=== PATIENT | female | born 1985 | race Caucasian/White ===

== ENCOUNTER → 2018-07-30 09:34 | Outpatient (CLI) | payer MEDICAID ==
[2014-02-28 07:55] VITALS: BMI 30.7
[~2018-07-30 09:34] MED LIST: HYDROCODONE-APA1 TAB PO; IBUPROFEN600 MG PO; PRENATAL COMPLE1 TAB
[2018-07-30 11:35] LABS: COLOR YELLOW (YELLOW)
[2018-07-30 11:36] LABS: APPEARANCE CLOUDY (CLEAR); BILIRUBIN NEGATIVE (NEGATIVE); GLUCOSE NEGATIVE (NEGATIVE); KETONE NEGATIVE (NEGATIVE); NITRITE POSITIVE (NEGATIVE); PROTEIN NEGATIVE (NEGATIVE); UROBILINOGEN NORMAL (NORMAL)
[2018-07-30 11:38] LABS: BACTERIA MANY /hpf (NONE SEEN); EPITHELIAL CELLS 0-5 /hpf (0-5); MUCUS <1+ /lpf (NONE SEEN); RED CELLS - URINE RARE /hpf (0-5); WHITE CELLS - URINE OCC /hpf (0-5)
== END | disposition home or self-care (01) ==
LOC: D.LDO 09:34
PROVIDERS: ATTEND Obstetrics & Gynecology
DX: O26.892 Other specified pregnancy related conditions, second trimester (principal); R10.2 Pelvic and perineal pain

== ENCOUNTER → 2018-09-17 12:02 | Outpatient (CLI) | payer SELFPAY ==
[2014-02-28 07:55] VITALS: BMI 30.7
[2018-09-17 14:08] LABS: APPEARANCE CLEAR (CLEAR); BILIRUBIN NEGATIVE (NEGATIVE); COLOR YELLOW (YELLOW); GLUCOSE NEGATIVE (NEGATIVE); KETONE NEGATIVE (NEGATIVE); NITRITE NEGATIVE (NEGATIVE); PROTEIN NEGATIVE (NEGATIVE)
== END | disposition home or self-care (01) ==
LOC: D.LDO 12:02
PROVIDERS: ATTEND Obstetrics & Gynecology
DX: O26.899 Other specified pregnancy related conditions, unspecified trimester (principal); Z3A.29 29 weeks gestation of pregnancy

== ENCOUNTER → 2018-10-09 08:47 | Outpatient (CLI) | payer SELFPAY ==
[2014-02-28 07:55] VITALS: BMI 30.7
[2018-10-09 09:49] LABS: BASOPHILS 0.2 % (0-2); EOSINOPHILS 1.4 % (0-7); HEMATOCRIT 30.9 % (36.0-48.0); HEMOGLOBIN 10.4 g/dL (12-16); LYMPHOCYTES 13.7 % (15-50); MCH 27.9 pg (26.0-34.0); MCHC 33.7 g/dL (31.0-37.0); MCV 82.8 fL (80.0-100.0); MONOCYTES 7.4 % (2-11); NEUTROPHILS 76.3 % (40-80); RBC 3.73 10x6/uL (4.00-5.40); RDW 13.3 % (11.5-14.5); WBC 11.5 10x3/uL (4.8-10.8)
[2018-10-09 10:04] LABS: ALBUMIN 2.4 g/dL (3.4-5.0); ALKALINE PHOSPHATASE 138 U/L (46-116); ALT (SGPT) 17 U/L (10-68); BILIRUBIN - DIRECT 0.03 mg/dL (0.00-0.30); BILIRUBIN - INDIRECT 0.16 mg/dL (0.00-1.00); BILIRUBIN - TOTAL 0.19 mg/dL (0.2-1.3); CALC OSMOLALITY 274 mosm/kg (275-300); CALCIUM 8.3 mg/dL (8.5-10.1); CARBON DIOXIDE 20.2 mmol/L (21.0-32.0); CHLORIDE - SERUM 105 mmol/L (98-107); CREATININE - SERUM 0.6 mg/dL (0.6-1.3); GLUCOSE 95 mg/dL (74-106); POTASSIUM - SERUM 3.3 mmol/L (3.5-5.1); PROTEIN - SERUM 6.4 g/dL (6.4-8.2); SODIUM 139 mmol/L (136-145); UREA NITROGEN 5 mg/dL (7-18); URIC ACID 3.4 mg/dL (2.6-7.2); eGFR NON AFRICAN AMERICAN > 90 mL/min (90-120)
[2018-10-09 10:05] LABS: PLATELET COUNT 210 10x3/uL (130-400)
[2018-10-09 10:12] LABS: APPEARANCE SL CLDY (CLEAR); BACTERIA MANY /hpf (NONE SEEN); BILIRUBIN NEGATIVE (NEGATIVE); COLOR YELLOW (YELLOW); GLUCOSE NEGATIVE (NEGATIVE); KETONE NEGATIVE (NEGATIVE); MUCUS <1+ /lpf (NONE SEEN); NITRITE NEGATIVE (NEGATIVE); PROTEIN NEGATIVE (NEGATIVE); SPECIFIC GRAVITY 1.015 (1.005-1.020); UROBILINOGEN NORMAL (NORMAL); WHITE CELLS - URINE 0-5 /hpf (0-5)
== END | disposition home or self-care (01) ==
LOC: D.LDO 08:47
PROVIDERS: ATTEND Obstetrics & Gynecology
DX: O16.3 Unspecified maternal hypertension, third trimester (principal); Z3A.33 33 weeks gestation of pregnancy

== ENCOUNTER → 2018-10-23 09:20 | Outpatient (CLI) | payer MEDICAID | END | disposition home or self-care (01) | LOC: D.LDO 09:20 | DX: O26.893 Other specified pregnancy related conditions, third trimester (principal); Z3A.34 34 weeks gestation of pregnancy ==

== ENCOUNTER 2018-10-29 18:36 | Outpatient (CLI) | payer MEDICAID ==
[2014-02-28 07:55] VITALS: BMI 30.7
[2018-10-29 19:41] LABS: APPEARANCE CLEAR (CLEAR); BILIRUBIN NEGATIVE (NEGATIVE); COLOR YELLOW (YELLOW); GLUCOSE NEGATIVE (NEGATIVE); KETONE NEGATIVE (NEGATIVE); NITRITE NEGATIVE (NEGATIVE); PROTEIN NEGATIVE (NEGATIVE); UROBILINOGEN NORMAL (NORMAL)
[2018-10-29 19:42] LABS: BACTERIA MODERATE /hpf (NONE SEEN); EPITHELIAL CELLS 0-5 /hpf (0-5); RED CELLS - URINE OCC /hpf (0-5); WHITE CELLS - URINE 0-5 /hpf (0-5)
[2018-10-29 19:49] LABS: UDS - AMPHET NEGATIVE QUAL (NEGATIVE); UDS - BARB NEGATIVE QUAL (NEGATIVE); UDS - BENZO NEGATIVE QUAL (NEGATIVE); UDS - COCAINE NEGATIVE QUAL (NEGATIVE); UDS - OPIATE NEGATIVE QUAL (NEGATIVE); UDS - PCP NEGATIVE QUAL (NEGATIVE); UDS - THC NEGATIVE QUAL (NEGATIVE)
== END 2018-10-29 19:47 | disposition home or self-care (01) ==
LOC: D.LDO 18:36
PROVIDERS: ATTEND Obstetrics & Gynecology
DX: O36.8130 Decreased fetal movements, third trimester, not applicable or unspecified (principal); Z3A.35 35 weeks gestation of pregnancy

== ENCOUNTER → 2018-10-30 19:41 | Outpatient (CLI) | payer MEDICAID ==
[2014-02-28 07:55] VITALS: BMI 30.7
== END | disposition home or self-care (01) ==
LOC: D.LDO 19:41
PROVIDERS: ATTEND Obstetrics & Gynecology
DX: O36.8130 Decreased fetal movements, third trimester, not applicable or unspecified (principal); Z3A.35 35 weeks gestation of pregnancy

== ENCOUNTER 2018-11-10 18:29 | Outpatient (CLI) | payer MEDICAID ==
[2014-02-28 07:55] VITALS: BMI 30.7
[2018-11-10 20:19] LABS: APPEARANCE HAZY (CLEAR); BILIRUBIN NEGATIVE (NEGATIVE); COLOR YELLOW (YELLOW); GLUCOSE NEGATIVE (NEGATIVE); KETONE NEGATIVE (NEGATIVE); NITRITE NEGATIVE (NEGATIVE); PROTEIN NEGATIVE (NEGATIVE); SPECIFIC GRAVITY 1.015 (1.005-1.020); UROBILINOGEN NORMAL (NORMAL)
[2018-11-10 20:21] LABS: RED CELLS - URINE NONE SEEN /hpf (0-5)
[2018-11-10 20:22] LABS: BACTERIA MODERATE /hpf (NONE SEEN)
== END 2018-11-10 22:14 | disposition home or self-care (01) ==
LOC: D.LDO 18:29
PROVIDERS: ATTEND Obstetrics & Gynecology
DX: O26.893 Other specified pregnancy related conditions, third trimester (principal); Z3A.37 37 weeks gestation of pregnancy

== ENCOUNTER 2018-11-14 16:09 | Inpatient (IN) | payer MEDICAID ==
[~2018-11-14] VITALS: Ht 172.7 cm; Wt 102.3 kg
[2018-11-14] VITALS (11 sets, daily range): BP systolic 104–132; BP diastolic 54–66; Ht 172.7 cm; Wt 102.3 kg
[2018-11-14] MEDS ORDERED: BUSPAR10 MG PO (16:48)
[2018-11-14] MEDS ORDERED: AMBIEN10 MG PO (16:49)
[2018-11-14 16:59] LABS: HEMATOCRIT 31.5 % (36.0-48.0); HEMOGLOBIN 10.8 g/dL (12-16); MCH 27.3 pg (26.0-34.0); MCHC 34.3 g/dL (31.0-37.0); MCV 79.7 fL (80.0-100.0); MEAN PLATELET VOLUME 11.2 fL (7.4-10.4); RBC 3.95 10x6/uL (4.00-5.40); RDW 13.8 % (11.5-14.5); WBC 14.2 10x3/uL (4.8-10.8)
[2018-11-14 17:01] LABS: APPEARANCE CLEAR (CLEAR); BILIRUBIN NEGATIVE (NEGATIVE); COLOR YELLOW (YELLOW); GLUCOSE NEGATIVE (NEGATIVE); KETONE NEGATIVE (NEGATIVE); NITRITE NEGATIVE (NEGATIVE); PROTEIN NEGATIVE (NEGATIVE); SPECIFIC GRAVITY 1.015 (1.005-1.020); UROBILINOGEN NORMAL (NORMAL)
[2018-11-14 17:10] LABS: UDS - AMPHET NEGATIVE QUAL (NEGATIVE); UDS - BARB NEGATIVE QUAL (NEGATIVE); UDS - BENZO NEGATIVE QUAL (NEGATIVE); UDS - COCAINE NEGATIVE QUAL (NEGATIVE); UDS - OPIATE NEGATIVE QUAL (NEGATIVE); UDS - PCP NEGATIVE QUAL (NEGATIVE); UDS - THC NEGATIVE QUAL (NEGATIVE)
--- NOTE | 2018-11-14 19:14 | NUR ---
REPORT TAKEN FROM BLAKE VILLA RN. PATIENT CARE ASSUMED AT THIS TIME.
--- NOTE | 2018-11-14 19:41 | NUR ---
RECEIVED FROM RECOVERY TO 1273. PT. AWAKE AND ORIENTED. C/O ABD. CRAMPING. FUNDUS FIRM U/2 AND LOCHIA RUBRA SCANT. LOWER ABD. DRESSING DRY AND INTACT. SCD SLEEVES NOTED ON PT. AND CONNECTED TO PUMPS AND FUNCTIONAL. IV OF LACTATED RINGERS INFUSING IN RT. WRIST . RECOVERY NURSE QUESTIONED WHY NS WITH PITOCIN WASN'T HANGING. NURSE STATED ANES. DID NOT HANG IT. MCCALLUM PATENT AND DRAINING. PT. UNABLE TO MOVE OR LEFT LOWER EXTREMITIES. SIDE RAILS UP X 2 AND CALL LIGHT WITHIN REACH.
--- NOTE | 2018-11-14 20:10 | NUR ---
ICE CAP TO ABD. PT. STATES ABD. CRAMPING INCREASED AND DESIRES PAIN MED. [place] DRINK SERVED.
--- NOTE | 2018-11-14 20:15 | NUR ---
TORADOL GIVEN IVP SLOWLY ORDERED FOR C/O ABD. CRAMPING. DILAUDID 2MG GIVEN SLOW IV PUSH FOR C/O ABD. CRAMPING. PRESENT IV OF LR DOWN AND IV OF 1000CC NS WITH 20U PITOCIN ADDED HUNG TO PRESENT TUBING AT 125CC/HR. FAMILY INFORMED THAT PT. IN ROOM TO VISIT.
--- NOTE | 2018-11-14 21:30 | NUR ---
PT AWAKE, FF, ML, U/2, JOSE CARE DONE WITH WET WARM WASH CLOTHS, PINK PAD, BLUE CHUX AND JOSE PAD CHANGED, MOD BLEEDING NOTED WITH 1 SMALL PEA SIZE CLOT ICE PACK TO ABD, SCD'S ON AND WORKING PROPERLY, ENC PT TO DRINK PLENTY OF FLUIDS, PT VERBALIZES UNDERSTANDING, SERVED FRESH H20 AND ICE CHIPS, PT DENIES FURTHER NEEDS, FAMILY BACK TO ROOM
--- NOTE | 2018-11-14 22:23 | NUR ---
PT HOLDING , MANASAY NURSE IN ROOM GOING OVER PAPERWORK, PT REFUSES NICOTINE PATCH AT THIS TIME, PREFERS TO WAIT TILL MORNING, STATES "I'M DOING OK RIGHT NOW", DENIES NEEDS, PT'S OTHER CHILD AT BEDSIDE
--- NOTE | 2018-11-14 23:03 | NUR ---
PT MOUNTING MACHINE OPERATOR LIGHT, PT REQUEST BP CUFF TO COME OFF, STATES "IT'S JUST HINDERING ME HOLDING HER", OBTAINED LAST VITAL SIGNS, PT RATES PAIN 2/10, DENIES NEED FOR PAIN MED OR ANY OTHER NEEDS, PT'S SON AT BEDSIDE
--- NOTE | 2018-11-15 00:12 | NUR ---
PT CELL TUBER HAND LIGHT, C/O INC PAIN, ADM DILAUDID SIVP PER MD ORDERS, SEE EMAR, JOSE PAD CHANGED, LITE BLEEDING NOTED WITH NO CLOTS, PT REPORTS THAT SHE IS READY TO GET A LITTLE REST, INFORMED PT THAT I WILL BE BACK SHORTLY TO ADM TORADOL, PT VERBALIZES UNDERSTANDING, FRESH H20 AND ICE CHIPS SERVED, DENIES FURTHER NEEDS, PT'S OTHER CHILD AT BEDSIDE
--- NOTE | 2018-11-15 00:42 | NUR ---
[age] BABY GIRL BORN TAKEN TO NURSERY BY Petra KRUSE
--- NOTE | 2018-11-15 01:03 | NUR ---
PT AROUSES TO OPENING OF DOOR, ADM TORADOL SIVP PER MD ORDERS, PT REPORTS "ITCHING", INFORMED PT THAT I WILL CHECK ABOUT GETTING HER SOME BENADRYL, PT VERBALIZES UNDERSTANDING, REQUESTED AND PROVIDED FAN
--- NOTE | 2018-11-15 01:13 | NUR ---
ADM BENADRYL PO PER MD ORDERS, PT REQUESTED AND PROVIDED BLANKET AND PILLOW FOR FEMALE FRIEND, FOB, OTHER CHILD AND FEMALE FRIEND IN ROOM
--- NOTE | 2018-11-15 02:34 | NUR ---
PT AWAKE, FOB HOLDING , PT REPORTS "PAIN AND ITCHING IS BETTER", DENIES NEEDS AT THIS TIME
--- NOTE | 2018-11-15 02:47 | NUR ---
NEW BAG OF NS WITH PITOCIN HUNG VIA PUMP INFUSING AT 125 ML/HR
[2018-11-15 04:30] VITALS: BP 106/52
--- NOTE | 2018-11-15 04:30 | NUR ---
PT STRAND FORMING MACHINE OPERATOR LIGHT, VS OBTAINED, I&O'S COLLECTED, JOSE CARE DONE WITH WET WARM WASH CLOTHS, PINK PAD, BLUE CHUX AND JOSE PAD CHANGED, FRESH SHEET AND BLANKET PROVIDED, SCD'S CONTINUE ON AND WORKING PROPERLY, PT RATES INC PAIN /, STATES "IT'S NOT BAD, IT'S TOLERABLE", PT REPORTS ITCHING IS BETTER, ENC PT TO DRINK PLENTY OF WATER, URINE IS CONCENTRATED, PT VERBALIZES UNDERSTANDING, INFANT IN OPEN CRIB CART AND OTHER CHILD ASLEEP ON COUCH
--- NOTE | 2018-11-15 06:00 | NUR ---
PT RESTING WITH EYES CLOSED, RESP QUIET, NO DISTRESS NOTED, LEFT UNDISTURBED AT THIS TIME, IN OPEN CRIB CART AND OTHER CHILD ASLEEP
[2018-11-15 06:12] LABS: RAPID PLASMA REAGIN Non Reactive (Non Reactive)
--- NOTE | 2018-11-15 06:54 | NUR ---
PT AWAKE, PT C/O CRAMPING AND INC PAIN, ADM BENADRYL PO, DILAUDID AND TORADOL SIVP PER MD ORDERS, SEE EMAR, PT DENIES FURTHER NEEDS, BACK IN NSY, PT'S SON ASLEEP ON COUCH, PT VISITING FEMALE FRIEND
[2018-11-15 07:15] VITALS: BP 94/58
--- NOTE | 2018-11-15 07:15 | NUR ---
ASSESSMENT PER FLOW SHEET, VS OBTAINED, IV IN RIGHT WRIST INTACT WITH NO REDNESS OR EDEMA INFUSING NS WITH PITOCIN VIA PUMP AT 125 ML/HR, FF, ML, U/2, LITE BLEEDING NOTED WITH 1 SMALL PEA SIZE CLOT ON JOSE PAD, JOSE PAD CHANGED, BIKINI INC WITH SMALL DRESSING WITH DRIED DRAINAGE NOTED, MCCALLUM CATH INTACT DRAINING DARK YELLOW URINE, PT ENC TO CONTINUE DRINKING PLENTY OF FLUIDS, PT VERBALIZES UNDERSTANDING, ICE PACK TO ABD, SCD'S ON AND WORKING PROPERLY, PT REPORTS FLATUS, PT RATES INC PAIN 2/10, PT DENIES NEEDS AT THIS TIME, FEMALE FRIEND HOLDING INFANT AT THIS TIME, PT'S SON ON COUCH
[2018-11-15 09:12] LABS: BASOPHILS 0.1 % (0-2); EOSINOPHILS 0.7 % (0-7); HEMATOCRIT 28.3 % (36.0-48.0); HEMOGLOBIN 9.4 g/dL (12-16); IMMATURE GRANULOCYTES 0.8 % (0-5); LYMPHOCYTES 11.6 % (15-50); MCH 26.8 pg (26.0-34.0); MCHC 33.2 g/dL (31.0-37.0); MCV 80.6 fL (80.0-100.0); MEAN PLATELET VOLUME 11.1 fL (7.4-10.4); MONOCYTES 7.5 % (2-11); NEUTROPHILS 79.3 % (40-80); RBC 3.51 10x6/uL (4.00-5.40); WBC 13.7 10x3/uL (4.8-10.8)
[2018-11-15 09:14] LABS: PLATELET COUNT 184 10x3/uL (130-400)
--- NOTE | 2018-11-15 10:15 | NUR ---
to pt's room, pt is sitting up on the side of bed, pt able to fully move and feel both legs. pt wishes to take a shower, and states "i'm hungry, when do i get to eat real food?". informed pt md has ordered regular diet for lunch. darby cath removed with 350 ml's dark yellow urine noted in darby bag. iv saline locked, all ivf's stopped. medication adm record reviewed with pt. clean linens provided for shower. pt denies all other needs at this time. family members in room holding , pt asking questions regarding baby "spitting up and it coming out of her nose". richi delcid lpn called to room, and this rn to nsy to sit with baby.
--- NOTE | 2018-11-15 10:18 | OP ---
PATIENT NAME: PAMELA MATIAS MEDICAL RECORD: [id number] :85 LOCATION:[id number] ADMISSION DATE:11/14/18 SURGEON: NICHOLAS LUU MD DATE OF OPERATION: 11/14/2018 PREOPERATIVE DIAGNOSES: 1. A 38 weeks' gestation. 2. Active labor. 3. History of section. 4. Unwanted fertility. POSTOPERATIVE DIAGNOSES: 1. Mother delivered at 38 weeks. 2. Active labor. 3. History of section. 4. Unwanted fertility. PROCEDURES: 1. Repeat low transverse section. 2. tubal ligation using Vadito technique. SURGEON: Nicholas Luu MD ORACLE REPORTS DEVELOPER: Sheron Pérez ANESTHETIC: Spinal. FINDINGS: Both tubes are unremarkable. Ovaries are unremarkable. Uterus is unremarkable as well. Viable female infant in a transverse presentation, delivered; Apgars 9 and 9 with weight of 6 pounds 7.7 ounces. SPECIMEN REMOVED: Placenta. SPECIMEN DISPOSITION: Discarded. ESTIMATED BLOOD LOSS: 700 cc. FLUIDS: Lactated Ringer's 2200. URINE OUTPUT: Clear urine, 200 cc. COMPLICATIONS: None. DRAINS: Ferrell to gravity. INDICATION: The patient is a 32-year-old multiparous female who presents to L&D with painful regular contractions. The patient's contractions were every 2-3 minutes apart and palpate mild to moderate. The patient was consented for repeat and bilateral tubal ligation. DESCRIPTION OF PROCEDURE: After informed consent was assured, the patient was taken to the operating room, where anesthetic was obtained without difficulty. The patient was prepped and draped, and anesthetic was assessed and found to be adequate. An incision was made over the old scar and carried down to the underlying layer of the fascia, which was opened in the midline and extended OPERATIVE REPORT [id number] PAMELA MATIAS laterally with Villegas scissors. Rectus bellies were dissected free superiorly and inferiorly and then in the midline. Peritoneum has been entered and an Lucas retractor was inserted and tightened. Low transverse hysterotomy was performed. Infant, with initial palpation, found to be in vertex presentation but not engaged with the pelvis. Upon entering to the amniotic cavity, the head was felt to the left of midline. Back was up. The was rotated to a vertex presentation and delivered atraumatically. The cord was doubly clamped and cut, and then the infant was passed to the attendant. Cord blood sample and cord gas were obtained. The placenta was delivered via Crede maneuver and then the uterus was exteriorized, cleared of all clot and debris. The uterus was now returned to the abdomen. The hysterotomy was closed with a running locked stitch of chromic. A small defect just left to the midline along the hysterotomy was reapproximated with interrupted chromic stitch. After adequate hemostasis had been achieved, attention was directed to the right tube, where a window was selected and opening made and ligature passed through this. The ligature was secured proximally and distally and the intervening segment of tube was excised. The ostia was cauterized. This was repeated on the contralateral side. After both tubal segments were removed, inspection of the hysterotomy again revealed adequate hemostasis. The fascia was now closed with looped PDS. Sponge count has been times 2. After closure of the fascia, subcutaneous tissue was inspected. Bleeding vessels were cauterized and reapproximated with plain gut. [place] were applied. Sponge, lap, and needle count was correct times 3 at the closure of this procedure. TRANSINT:[id number] Voice Confirmation ID: [id number] DOCUMENT ID: [id number] NICHOLAS LUU MD at 1018 CC: [id number] DICTATION DATE: 11/14/181855 PROPERTY UTILIZATION OFFICER: 11/14/181939 ADM IN [facility] [address] [place] [address]
--- NOTE | 2018-11-15 10:42 | NUR ---
PEROCET 10 MG ONE PO GIVEN PER PT'S REQUEST FOR PAIN MEDICATION. SEE EMAR FOR MEDS ADM BY THIS RN. SR UP X2, CALL LIGHT AND PHONE WITHIN REACH. PT DENIES ALL OTHER NEEDS AT THIS TIME.
--- NOTE | 2018-11-15 10:45 | NUR ---
PT OUT OF SHOWER. DRESSING OVER C/S INCISION REMOVED AFTER SHOWER, WITH MARNIE NOTED, C/D/I. CLEAN PERIPAD PLACED OVER INCISION FOR COMFORT, AND TO HELP KEEP INCISION DRY. PT DRESSED IN OWN CLOTHING. UPON REMOVING GLOVE THAT WAS PLACED OVER SALINE LOCK FOR SHOWER, TAPE OVER IV ALSO COMES OFF, SL DC/D AT THIS TIME WITH CATH INTACT. BED LINENS CHANGED WHILE PT WAS IN SHOWER. PT SERVED COCA COLA TO DRINK PER HER REQUEST. PT DENIES HEAVY BLEEDING OR PASSING CLOTS. ASKED PT TO LET ME KNOW WHEN SHE IS ABLE TO VOID, AND THAT SHE WILL NEED TO VOID BY 1500, [place] HAT PROVIDED, PT SHOWN AND DENIES NEEDS AT THIS TIME. SRUP X2, CALL LIGHT AND PHONE WITHIN REACH.
[2018-11-15 11:00] VITALS: BP 115/60
--- NOTE | 2018-11-15 11:30 | NUR ---
PT AMBULATORY IN [place] WITH FAMILY MEMBERS.
--- NOTE | 2018-11-15 11:50 | NUR ---
DR. LUU ON UNIT, MD AWARE OF PT'S SCORE ON PHQ-9. MD WILL ADDRESS AND EVALUATE PT TODAY.
--- NOTE | 2018-11-15 12:00 | NUR ---
PT AND SIG OTHER AMBULATORY OFF UNIT.
--- NOTE | 2018-11-15 12:00 | NUR ---
PT AMBULATORY BACK TO UNIT, STATES "I WENT TO PEE BEFORE I LEFT, BUT DID NOT CATCH IT, SO I WILL GO AGAIN". BACK TO ROOM.
--- NOTE | 2018-11-15 13:15 | NUR ---
PT AMBULATORY BACK TO ROOM, STATES "I DID GO PEE INTO THAT HAT THING AND IT HAS 2 TIMES WORTH OF PEE IN IT". [place] EMPTIED WITH 500 ML'S DARK YELLOW URINE, WITH ONE SMALL PENCIL ERASER SIZED BLOOD CLOT NOTED.
--- NOTE | 2018-11-15 16:45 | NUR ---
DR. LUU TO ROOM TO SPEAK WITH PT.
--- NOTE | 2018-11-15 16:47 | NUR ---
PERCOCET 10 MG ONE PO GIVEN PT HAS REQUESTED PAIN MEDICATION. SEE EMAR FOR MEDS ADM BY THIS RN. SRUP X2, CALL LIGHT AND PHONE WITHIN REACH.
--- NOTE | 2018-11-15 16:55 | NUR ---
PT AMBULATORY IN H[place], VISITORS TO ROOM. PT BACK TO ROOM. FOB IN ROOM TENDING TO INFANT. PT DENIES ALL OTHER NEEDS AT THIS TIME.
--- NOTE | 2018-11-15 17:20 | NUR ---
PT AMBULATORY IN HALL[place], AND THEN BACK TO ROOM. PT REQUESTS "A WARM DR. OWENS", PT STATES THIS ALWAYS WORKS FOR HER TO HELP HER HAVE A BM, PT REPORTS SHE IS PASSING GAS. DENIES ALL OTHER NEEDS AT THIS TIME. SRUP X2, CALL LIGHT AND PHONE WITHIN REACH.
[2018-11-15 19:26] VITALS: BP 122/56
--- NOTE | 2018-11-15 19:26 | NUR ---
PT. SITTING ON SIDE OF BED. PT. LOOKS EXTREMELY FATIQUES. COMMENTED TO PT. SAME. PT. STATES THAT SHE IS EXTREMELY TIRED AND NEEDS TO SLEEP. FOB IN ROOM ATTEMPTING TO FEED INFANT. ABD. INCISION NOTED WITH MARNIE. NO REDNESS NOR DRAINAGE AT INCISION SITE. LOCHIA RUBRA SCANT. BREATH SOUNDS CLEAR AND BOWEL SOUNDS ACTIVE. PT. REPORTS PASSING FLATUS. RATES PAIN A 4 OF 10 AT THIS TIME. INFORMED PT. THAT SHE HAD A SLEEP AID ORDERED IF SHE DESIRED FOR TONIGHT. PT. STATES THAT SHE WILL PROBABLY ASK FOR MED TONIGHT SINCE SHE SHOULD GO HOME TOMORROW AND SHE NEEDED TO BE RESTED. FEMALE IN ROOM WITH FOB IDENTIFIES HIS FIANCE. FEMALE LYING ON SOFA AT PRESENT.
--- NOTE | 2018-11-15 20:07 | NUR ---
AMBULATORY IN [place]. STEADY GAIT NOTED. BREAST PADS PROVIDED PER REQUEST. DENIES ADDITIONAL NEEDS.
--- NOTE | 2018-11-15 21:40 | NUR ---
PT. SITTING ON SIDE OF BED. REQUESTING PAIN MED FOR PAIN SCALE OF 8 OF 10 FOR INCISIONAL DISCOMFORT. FOB REMAINS IN ROOM WITH PT AND IS CARING FOR . PRESENTLY IN OPEN CRIB AT BEDSIDE.
--- NOTE | 2018-11-15 21:45 | NUR ---
PAIN MED GIVEN REQUESTED. CRACKERS SERVED PER PT REQUEST.
--- NOTE | 2018-11-15 22:06 | NUR ---
PT. REQUESTING COKE TO DRINK AND ALSO INQUIRING ABOUT AMBIEN. INFORMED PT. THAT SINCE SHE JUST GOT PAIN MED, WOULD NEED TO WAIT APPROX. AN HOUR BEFOR AMBIEN GIVEN. COKE SERVED.
--- NOTE | 2018-11-15 22:53 | NUR ---
PT. RATES INCISIONAL PAIN A 5 AT THIS TIME. LYING ON RT SIDE AND STATES THAT SHE FEELS GAS AND IS TRYING TO EXPEL. FOB AND FEMALE RREMAIN IN ROOM.
[2018-11-15 23:10] VITALS: BP 115/56
--- NOTE | 2018-11-15 23:10 | NUR ---
VITAL SIGNS OBTAINED. CONTINUES TO LIE ON RT SIDE. OFFERED TO PUT SCDS ON PT. LEGS AND PT. DECLINED. STATES SHE WILL MOVE HER LEGS ABOUT IN BED AND PREFERS NOT TO HAVE THEM ON. FOB AND HIS GIRLFRIEND LYING ON SOFA TOGETHER. FOB STATES HE WILL CARE FOR INFANT TONIGHT WHILE PT. SLEEPS. INFANT IN OPEN CRIB BESIDE SOFA.
--- NOTE | 2018-11-16 01:08 | NUR ---
PT. ASLEEP AT PRESENT. AWAKENS TO NURSE IN ROOM. FOB IN BED WITH PT. FEEDING . FOB'S GIRLFRIEND ASLEEP ON THE SOFA.
--- NOTE | 2018-11-16 02:30 | NUR ---
INFANT TO ROOM. PT. REMAINS ASLEEP. FOB IN ROOM AND IS GOING TO CARE FOR INFANT.
--- NOTE | 2018-11-16 03:07 | NUR ---
LYING ON LT SIDE . RESPIRATIONS UNLABORED.
--- NOTE | 2018-11-16 04:28 | NUR ---
PT. AWAKENED FOR VITAL SIGN ASSESSMENT. ONLY AWAKE FOR BRIEF PERIODS. FOB LYING ON SOFA WITH GIRL FRIEND. IN OPEN CRIB BESIDE SOFA WHERE FOB IS LYING. RESPIRATIONS UNLABORED.
[2018-11-16 04:29] VITALS: BP 132/60
--- NOTE | 2018-11-16 06:30 | NUR ---
PT. UP AND ABOUT IN ROOM. PT. CHEERFUL AND STATES SHE FEELS MUCH MORE RESTED. REQUESTING COLA DRINK. FOB SITTING ON BED AND FEEDING INFANT. COLA DRINK SERVED.
--- NOTE | 2018-11-16 08:13 | NUR ---
AMBULATING IN [place]. WILL COMPLETE SHIFT ASSESSMENT AFTER RETURNING TO ROOM.
--- NOTE | 2018-11-16 08:55 | NUR ---
RETURNED TO ROOM AFTER WALKING. WOULD LIKE TO TAKE A SHOWER. ASKED IF TIME FOR PAIN MEDICATION PERCOCET 10MG GIVEN PO AFTER DISCUSSING PAIN MANAGEMENT OPTIONS. ITEMS GIVEN FOR SHOWER. FOB HOLDING INFANT IN BED. REMINDED TO NOT TO SLEEP HOLDING INFANT IN ARMS. VERBALIZED UNDERSTANDING. ORDERS HAVE BEEN RECEIVED TO DC HOME WITH . VISITORS X 2 IN ROOM. TO CALL IF ANYTHING IS NEEDED.
[2018-11-16 08:57] VITALS: BP 123/62
--- NOTE | 2018-11-16 09:42 | NUR ---
SAYS HER PAIN IS GETTING BETTER, "JUST ACHY. 4" 09/04. VERBAL AND WRITTEN INFORMATION GIVEN ON MMR VACCINE. PER OB RECORDS PT IS NON-IMMUNE. DESIRES TO RECEIVE PRIOR TO DC HOME. SHOWER COMPLETED. NO REQUESTS. AND VISITORS IN ROOM.
--- NOTE | 2018-11-16 10:25 | NUR ---
PATIENT AMBULATED OFF FLOOR. VISITOR IN ROOM WITH .
[2018-11-16] MEDS ORDERED: PERCOCET 5-3251 TAB PO (10:36)
--- NOTE | 2018-11-16 10:50 | NUR ---
MMR GIVEN SUB Q PER ORDERS FOR NON-IMMUNE STATUS AFTER DISCUSSING WITH PT. REMINDED TO AVOID . PT SAYS SHE IS "FIXED". AND VISITORS IN ROOM. PAIN REMAINS AT A 09/04. NO REQUESTS.
--- NOTE | 2018-11-16 11:15 | NUR ---
AMBULATING IN ROOM. DENIES NEEDING ANYTHING. ASKED ABOUT "DEFORMITY" NOTED LOWER ABDOMEN. INSPECTION COMPLETED. R LOW ABDOMEN BULGING SLIGHTLY MORE THAN LEFT SIDE BUT MAY BE RELATED TO REPAIR IF LTCS INCISION. SMALL ROUND SLIGHTLY DARK AREA NOTE ABOUT 6 CM ABOVE RIGHT SIDE OF INCISION. NO INCREASE IN WARMTH THROUGHOUT LOWER ABDOMEN TO TOUCH. AFEBRILE. ABDOMEN SOFT. DISCUSSED POSSIBLE USE OF ABDOMINAL BINDER FOR SUPPORT. DESIRES TO WAIT UNTIL SHE GETS HOME. DISCUSSED ADIPOSE TISSUE DISTRIBUTION AND DIASTASIS RECTUS. REVIEWED SUGGESTIONS FOR WEIGHT LOSS AND ABD EXERCISES ONE APPROVED BY MD POST . DISCUSSED S&S INFECTION. VERBALIZED UNDERSTANDING. WILL HAVE F/U ON SUNDAY FOR STAPLE REMOVAL. 09/04 DISCOMFORT CONTINUES. DENIES NEEDING ANYTHING. TRYING TO DRINK WARM PRUNE JUICE AND PLANS TO TRY LLD POSITION TO PROMOTE PASSING OF GAS. VISITORS X2 AND INFANT IN ROOM. C/O BEING HUNGRY. SANDWICH TRAY GIVEN. TO CALL IF ANYTHING ELSE IS NEEDED.
[2018-11-16 11:44] VITALS: BP 130/73
--- NOTE | 2018-11-16 13:25 | NUR ---
FINISHED EATING LUNCHING. TALKING TO VISITORS. DENIES NEEDING ANYTHING. INFANT REMAINS IN ROOM. TO CALL IF ANYTHING IS NEEDED. WAITING ON INFANT DC. DRESSED AND READY TO GO HOME.
--- NOTE | 2018-11-16 15:06 | NUR ---
PERCOCET 10 MG GIVEN PO FOR RELIEF OF INCISIONAL PULLING PRESSURE. READY TO GO HOME. DC TEACHING COMPLETED TO INCLUDE POST OP CARE, S&S INFECTION, S&S DEPRESSION, DANGER SIGNS, MEDICATION ADMINISTRATION, RELIEF OF GAS, AND FOLLOW-UP. VERBALIZED UNDERSTANDING. WAITING ON INFANT DC.
--- NOTE | 2018-11-16 15:10 | NUR ---
PT ASKED ABOUT BLEEDING. NOTED SMALL AMOUNT OF LOCHIA SEROSA ON JOSE-PADS IN BATHROOM, OCCASIONAL PADS WITH DARK NOVAK-BROWN DC. DISCUSSED LOCHIA FLOW AND CHANGES POST . TO REPORT IF SATURATING PADS OR BLEEDING DOES NOT STOP. EXPLAINED SHE MAY NOTICE INCREASE THE MORE ACTIVE SHE IS OR IF BLADDER IS FULL. VERBALIZED UNDERSTANDING. HAS TRIED WARM PRUNE JUICE AND LLD TO PROMOTE PASSING OF FLATUS. WILL AMBULATED.
--- NOTE | 2018-11-16 16:09 | NUR ---
AMBULATING IN [place]. PAIN IS 3-4/10 STATES "IT'S DO ABLE". WAITING ON DC. NO REQUESTS.
--- NOTE | 2018-11-16 16:48 | NUR ---
ACTIVE BS X 4, ABDOMEN SOFT, NO DISTENTION NOTED. MYLICON 80 MG GIVEN PO FOR RELIEF. SAYS SHE CAN FEEL IT ALMOST PASS THEN IT STOPS. SITTING ON EDGE OF BED EATING DINNER. VISITORS IN ROOM. INFANT REMAINS IN ROOM. TO CALL IF ANYTHING ELSE IS NEEDED.
--- NOTE | 2018-11-16 18:07 | NUR ---
AMBULATING IN ROOM. WAITING ON COIL STRAPPER TO VISIT FOR INFANT DC. WRITTEN DC INSTRUCTIONS AND PRESCRIPTION GIVEN TO PATIENT. REVIEWED HIGHLIGHT TEACHING INCLUDING DANGER SIGNS, SIGNS OF INFECTION AND FOLLOW-UP. SAYS SHE HAS NOT PASSED GAS YET AND DOES NOT FEEL MUCH DIFFERENCE AFTER MYLICON. DISCUSSED SIGNS OF DISTENTION. VERBALIZED UNDERSTANDING. NO REQUESTS.
--- NOTE | 2018-11-16 19:04 | NUR ---
DC'D AMBULATORY PER PATIENT REQUEST. AMBULATED TO CAR WITH Abraham BALDERAS RN ASSISTANTING. FAMILY DRIVING. ALL BELONGINGS REMOVED FROM ROOM. HAS DC INSTRUCTIONS AND PRESCRIPTIONS.
--- NOTE | 2018-11-18 14:43 | MORECARE ---
CASE MANAGEMENT DISCHARGE SUMMARY PATIENT: PAMELA MATIAS UNIT: [id number] ADM DATE: 11/14/18 AGE: 32 : 85 SEX: F ROOM/BED: D.1273 AUTHOR: DEIDRE MCCORD PHYSICIAN: REFERRING PHYSICIAN: FER LUU MD DATE OF SERVICE: 11/18/18 Discharge Plan Patient Name: PAMELA MATIAS [facility] [facility] 1985 Planned Disposition: Anticipated Discharge Date: Discharge Date: 11/16/2018 Expected LOS: Initial Reviewer: [email or web address] Initial Review Date: 11/19/2018 Generated: 11/18/18 3:43 pm Patient Name: PAMELA MATIAS Page [id number] at 1443 All edits/amendments must be made on the electronic document DICTATION DATE: 11/18/181441 JEWEL HOLE ROUGH OPENER: ROBIN 11/18/181441 RPT#: [id number] DC DATE:11/16/18 STATUS: DIS IN [facility] [address] [place] [address] END OF REPORT
== END 2018-11-16 19:04 | disposition home or self-care (01) | DRG 785 ==
LOC: D.LDO 16:09 → D.LD 16:44
PROVIDERS: ADMIT Obstetrics & Gynecology; ATTEND Obstetrics & Gynecology
PROC: 0UL70ZZ Occlusion of Bilateral Fallopian Tubes, Open Approach (ICD-10-PCS; 2018-11-14)
PROC: 10D00Z1 Extraction of Products of Conception, Low, Open Approach (ICD-10-PCS; principal; 2018-11-14 17:00)
DX: O34.211 Maternal care for low transverse scar from previous cesarean delivery (principal); Z3A.38 38 weeks gestation of pregnancy; Z30.2 Encounter for sterilization; O99.334 Smoking (tobacco) complicating childbirth

== ENCOUNTER → 2018-11-20 12:38 | Outpatient (CLI) | payer MEDICAID ==
[2018-11-14 17:14] VITALS: BMI 34.2
[~2018-11-20 12:38] MED LIST changes: +AMBIEN10 MG PO; +BUSPAR10 MG PO; +PERCOCET 5-3251 TAB PO
== END | disposition home or self-care (01) ==
LOC: D.RAD 10:30 → D.US 10:30
PROVIDERS: ATTEND Obstetrics & Gynecology
DX: R60.0 Localized edema (principal)